=== PATIENT | female | born 1930 | race Caucasian/White ===

== ENCOUNTER → 2016-11-23 | Outpatient (CLI) | payer MEDICARE | END | disposition home or self-care (01) | LOC: GMAL 10:31 | PROVIDERS: ATTEND Family Medicine | DX: R53.83 Other fatigue (principal); D51.3 Other dietary vitamin B12 deficiency anemia; E55.9 Vitamin D deficiency, unspecified; N30.00 Acute cystitis without hematuria ==

== ENCOUNTER → 2016-12-02 | Outpatient (CLI) | payer MEDICARE | END | disposition home or self-care (01) | LOC: GMAL 02:33 | PROVIDERS: ATTEND Family Medicine | DX: N30.00 Acute cystitis without hematuria (principal) ==

== ENCOUNTER → 2016-12-23 | Outpatient (CLI) | payer MEDICARE | END | disposition home or self-care (01) | LOC: GMAL 16:57 | PROVIDERS: ATTEND Family Medicine | DX: N30.00 Acute cystitis without hematuria (principal) ==

== ENCOUNTER → 2019-12-03 | Outpatient (CLI) | payer MEDICARE ==
--- NOTE | 2019-12-04 07:33 | CT ---
EXAM DESCRIPTION: Abdomen w/Contrast CLINICAL HISTORY: 89 years Female, ABNORMAL LEVELS ON OTHER SERUM ENZYMES COMPARISON: None. TECHNIQUE: CT of the abdomen only was performed with IV contrast. This exam was performed according to our departmental dose-optimization program, which includes automated exposure control, adjustment of the mA and/or kV according to patient size and/or use of iterative reconstruction technique. FINDINGS: 7 mm noncalcified right lower lobe nodule. The lung bases are otherwise unremarkable. Mural calcification in the abdominal aorta without aneurysm or dissection. No adenopathy or ascites. The gallbladder is present, no calcified gallstone. The liver, spleen, pancreas, adrenals and kidneys are unremarkable. Moderate amount of stool and gas in visualized portions of colon. Partially visualized small bowel without small bowel dilation. Degenerative changes in the lumbar spine at several levels including degenerative disc disease at L5-S1. Faintly sclerotic lesion in the right side of the L1 body, nonspecific. IMPRESSION: No liver mass or other intra-abdominal abnormality to explain provided history. 7.0 mm solid pulmonary nodule. Recommend a non-contrast Chest CT at 6-12 months, then consider an additional non-contrast Chest CT at 18-24 months. These guidelines do not apply to immunocompromised patients and patients with cancer. Follow up in patients with significant comorbidities as clinically warranted. For lung cancer screening, adhere to Lung-RADS guidelines. Reference: Radiology. 2017; 284(1):228-43. Faintly sclerotic lesion in the right side of the L1 body, nonspecific. Given lack of additional bone lesions, this probably represents a bone island, less likely metastatic disease. Electronically signed by: Jonnie Farooq MD 12/04/2019 7:[address] [facility]
== END ==
LOC: CT 10:30
PROVIDERS: ATTEND Nurse Practitioner
DX: R74.8 Abnormal levels of other serum enzymes (principal); R91.1 Solitary pulmonary nodule